=== PATIENT | male | born 1965 | race Caucasian/White ===

== ENCOUNTER 2017-06-16 17:30 | Emergency (ER) | payer OTHER ==
[2017-06-16 17:35] VITALS: BP 106/62; PULSE 50; TEMP 98.2; BMI 27.4
--- NOTE | 2017-06-16 17:44 | PDOC ---
History of Present Illness - General Chief Complaint: Pain Stated Complaint: STOMACH PAIN Time Seen by Provider: 06/16/17 17:42 - History of Present Illness Initial Comments: 06/16/17 17:58 51 yo M with no significant pmh who presents with abdominal pain. Pt. reports stable, unremitting, sharp, epigastirc pain for the past month. Reports returning from [place] 06/11/17 with worsening of symptoms upon return. Also reports having sonogram performed with report of " colon inflammation." Pain worse at night, not aggravated with PO intake or movement. Reports abdominal fullness. Last BM this AM, with no visualized BPR, or dark colored stools. Pain not alleviated with Omperazole 20 mg, Scopalamine 10/250 mg, and Ondansetron 10 mg. States that he drank tap water in [place]. Denies N/V, F/C, diarrhea, constipation, urinary complaints, lightheadedness, weakness. Denies /o endoscopy ,colonoscopy, abdominal surgery, or GI pathology. No GI doctor. Denies alcohol or tobacco use, change in diet, or sick contacts. Past History - Past Medical History Allergies/Adverse Reactions: Allergies Allergy/AdvReac Type Severity Reaction Status Date / Time No Known Allergies Allergy Verified 06/16/17 17:35 Home Medications: Ambulatory Orders Metoclopramide HCl [Reglan] 10 mg PO PRN 06/16/17 Omeprazole 20 mg PO DAILY 06/16/17 Ranitidine [Zantac -] 150 mg PO BID 14 Days #28 tablet MDD 2 Tab 06/16/17 COPD: No - Suicide/Smoking/Psychosocial Hx Smoking History: Never smoked Review of Systems - Review of Systems Comments:: 06/16/17 17:43 GENERAL/CONSTITUTIONAL: No fever or chills. No weakness. HEAD, EYES, EARS, NOSE AND THROAT: No change in vision. No ear pain or discharge. No sore throat.- CARDIOVASCULAR: No chest pain or shortness of breath RESPIRATORY: No cough, wheezing, or hemoptysis. GASTROINTESTINAL: + Abdominal pain. No nausea, vomiting, diarrhea or constipation. GENITOURINARY: No dysuria, frequency, or change in urination. MUSCULOSKELETAL: No joint or muscle swelling or pain. No neck or back pain. SKIN: No rash NEUROLOGIC: No headache, vertigo, loss of consciousness, or change in strength/ sensation. ENDOCRINE: No increased thirst. No abnormal weight change HEMATOLOGIC/LYMPHATIC: No anemia, easy bleeding, or history of blood clots. ALLERGIC/IMMUNOLOGIC: No hives or skin allergy. *Physical Exam - Vital Signs Last Vital Signs Temp Pulse Resp BP Pulse Ox 98.2 F 50 L 18 106/62 99 06/16/17 17:33 06/16/17 17:33 06/16/17 17:33 06/16/17 17:33 06/16/17 17:33 - Physical Exam Comments: 06/16/17 17:43 GENERAL: Awake, alert, and fully oriented, in no acute distress HEAD: No signs of trauma, normocephalic, atraumatic EYES: PERRLA, EOMI, sclera anicteric, conjunctiva clear ENT: Hearing grossly normal, nares patent, oropharynx clear without exudates. Moist mucosa NECK: Normal ROM, supple, no lymphadenopathy, JVD, or masses LUNGS: No distress, speaks full sentences, clear to auscultation bilaterally HEART: Regular rate and rhythm, normal S1 and S2, no murmurs, rubs or gallops, peripheral pulses normal and equal bilaterally. ABDOMEN: Soft, + epigastric ttp, normoactive bowel sounds. No guarding, or rigidity, no rebound. No masses. Neg kelley sign or mcburney point ttp. Neg CVA or suprapubic ttp. EXTREMITIES : Normal inspection, Normal range of motion, no edema. No clubbing or cyanosis. SKIN: Warm, Dry, normal turgor, no rashes or lesions noted ED Treatment Course - LABORATORY CBC & Chemistry Diagram: 06/16/17 18:12 06/16/17 18:12 Medical Decision Making - Medical Decision Making 06/16/17 18:06 51 yo M with no significant pmh who presents with stable, unremitting, sharp, epigastirc pain for the past month. Recent return from [place] 06/11/17 with worsening of symptoms upon return. Reports abdominal fullness. Last BM this AM, with no visualized BPR, or dark colored stools. Pain refractory to Omperazole 20 mg, Scopalamine 10/250 mg, and Ondansetron 10 mg. States that he drank tap water in [place]. Denies N/V, F/C, diarrhea, constipation, urinary complaints, lightheadedness, weakness. Denies h/o endoscopy,. colonoscopy, abdominal surgery , or GI pathology. Physical exam noteable for epigastria ttp. HDS. Abdominal discomfort most likely dyspepsia 2/2 gastritirs vs. esophagitis. Possible travelers diarrhea. Low suspicion of more serious GI pathology . Exam and history do not suggest choleycsytitis, pancreatitis, colitis. ED Course: CBC, CMP, Lipase EKG, RUQ U/S Carafate, Ranitidine, Maloox 06/16/17 18:15 CBC: Unremarkable UA: Neg EKG: Sinus bradycardia with TWI in lead III. Absent TRINA, STD. Normal interval and axis. 06/16/17 19:23 CMP: Unremarkable 06/16/17 22:23 RUQ U/S: No acute pathology Patient stable with improvements in epigastric pain. Pt. stable and ready for d/c with return precautions. Advised to f/u in resident med clinic and with GI outpt. Sent Ranitidine to pharm and advised to cont. PPI use. *DC/Admit/Observation/Transfer Diagnosis at time of Disposition: Dyspepsia - Discharge Dispostion Condition at time of disposition: Stable Admit: No - Prescriptions Prescriptions: Ranitidine [Zantac -] 150 mg PO BID 14 Days #28 tablet MDD 2 Tab - Referrals Referrals: Edi Flores MD [Staff Physician] - Huy Pina DO [Staff Physician] - - Patient Instructions Printed Discharge Instructions: DI for Gastritis Additional Instructions: Please return to the emergency department with any new or worsening symptoms or concerns. Please follow up with your primary care physician within 72 hours. Please take Ranitidine two times per day, and continue Omeprazole use daily. Can also continue to take Scopalamine and Zofran as needed. - Post Discharge Activity - Attestations Physician Attestion: 06/16/17 17:44 I attest to the information provided in this note
[2017-06-16] MEDS ORDERED: RANITIDINE HCL 150 MG TABLET (FP) PO ONE (17:59)
[2017-06-16] MEDS ORDERED: SUCRALFATE 1 GM TABLET (FP) PO ONE (17:59)
[2017-06-16] MEDS ORDERED: MAG HYDROX/AL HYDROX/SIMETH 30 ML UNIT-DOSE CUP PO ONE (17:59)
[2017-06-16] MEDS ORDERED: SUCRALFATE 1 GM TABLET (FP) ONE (18:10)
[2017-06-16] MEDS ORDERED: RANITIDINE HCL 150 MG TABLET (FP) ONE (18:10)
[2017-06-16] MEDS ORDERED: MAG HYDROX/AL HYDROX/SIMETH 30 ML UNIT-DOSE CUP ONE (18:11)
[2017-06-16 18:25] LABS: URINE APPEARANCE CLEAR; URINE BILIRUBIN NEGATIVE (NEGATIVE); URINE BLOOD NEGATIVE (NEGATIVE); URINE COLOR COLORLESS; URINE GLUCOSE (UA) NEGATIVE (NEGATIVE); URINE KETONE NEGATIVE (NEGATIVE); URINE LEUK ESTERASE NEGATIVE (NEGATIVE); URINE NITRITE NEGATIVE (NEGATIVE); URINE PROTEIN NEGATIVE (NEGATIVE); URINE UROBILINOGEN NEGATIVE mg/dL (0.2-1.0)
--- NOTE | 2017-06-16 18:35 | PDOC ---
Attending Attestation - Resident Resident Name: Bennie Day - ED Attending Attestation I have performed the following: I have examined & evaluated the patient, The case was reviewed & discussed with the resident, I agree w/resident's findings & plan, Exceptions are as noted - HPI HPI: 06/16/17 18:32 51 yo male with h/o GERD presents with dyspepsia and epigastric discomfort -no fever,no chills,no vomiting 06/16/17 18:33 -pt saw a physician in [place] and was placed on omeprazole,scopalamine - Physicial Exam PE: 06/16/17 20:01 wnwd 51 yo male in no acute distress head -ncat eyes deniz eomi neck -supple lungs -cta b/l abd- no rebound,no guarding no cva tenderness ext no e/c/c skin warm,dry neuro axox3,no focal neuro deficits psych appropriate - Medical Decision Making 06/16/17 20:03 labs unremarkable pt to follow up with GI
[2017-06-16 18:39] LABS: BASO % 0.7 % (0-2.0); EOS % 0.9 % (0-4.5); HEMATOCRIT 42.2 % (35.4-49); HEMOGLOBIN 14.6 GM/dL (11.7-16.9); LYMPH % 46.6 % (8-40); MCH 31.6 pg (25.7-33.7); MCHC 34.7 g/dl (32.0-35.9); MEAN CELL VOLUME 91.2 fl (80-96); MONO % 7.5 % (3.8-10.2); NEUT % 44.3 % (42.8-82.8); PLATELET COUNT 246 K/MM3 (134-434); RBC 4.63 M/mm3 (4.00-5.60); RDW 12.8 % (11.9-15.9); WHITE BLOOD COUNT 5.6 K/mm3 (4.0-10.0)
[2017-06-16 19:16] LABS: ALBUMIN 4.1 g/dl (3.4-5.0); ALK PHOS 75 U/L (45-117); ANION GAP 6 (8-16); BILIRUBIN,TOTAL 0.4 mg/dL (0.2-1.0); BLOOD UREA NITROGEN 13 mg/dL (7-18); CALCIUM 8.8 mg/dL (8.5-10.1); CHLORIDE 105 mmol/L (98-107); CO2 28 mmol/L (21-32); CREATININE 0.9 mg/dL (0.7-1.3); GLUCOSE,RANDOM 88 mg/dL (74-106); POTASSIUM 3.8 mmol/L (3.5-5.1); SGOT/AST 18 U/L (15-37); SGPT/ALT 20 U/L (12-78); SODIUM 139 mmol/L (136-145); TOT PROT 7.4 g/dl (6.4-8.2)
--- NOTE | 2017-06-17 16:05 | EKG ---
Test Reason : Blood Pressure : / mmHG Vent. Rate : 046 BPM Atrial Rate : 046 BPM P-R Int : 150 ms QRS Dur : 096 ms QT Int : 462 ms P-R-T Axes : 036 015 -21 degrees QTc Int : 404 ms SINUS BRADYCARDIA T WAVE ABNORMALITY, CONSIDER INFERIOR ISCHEMIA ABNORMAL ECG NO PREVIOUS ECGS AVAILABLE Confirmed by KRYSTEN DEAL MD ([id number]) on 06/17/2017 4:05:44 PM Referred By: Confirmed By:KRYSTEN DEAL MD
== END 2017-06-16 22:48 | disposition home or self-care (01) ==
LOC: JER 17:30
DX: K29.60 Other gastritis without bleeding (principal); R10.13 Epigastric pain
CPT/HCPCS: 36415; 76705-TC; 80053; 81003; 83690; 85025; 93005; 93010; 99283-25

== ENCOUNTER 2017-07-12 09:10 | Day surgery (SDC) | payer OTHER ==
[2017-07-11 09:42] VITALS: BMI 26.6
[2017-07-12 10:47] VITALS: TEMP 97.6
[2017-07-12] MEDS ORDERED: PROPOFOL 20 ML ONE ×2 (10:49)
[2017-07-12 12:52] LABS: ALBUMIN 3.8 g/dl (3.4-5.0); ALK PHOS 67 U/L (45-117); ANION GAP 7 (8-16); BILIRUBIN,TOTAL 0.5 mg/dL (0.2-1.0); BLOOD UREA NITROGEN 17 mg/dL (7-18); CHLORIDE 105 mmol/L (98-107); CO2 30 mmol/L (21-32); CREATININE 0.9 mg/dL (0.7-1.3); GLUCOSE,RANDOM 80 mg/dL (74-106); POTASSIUM 4.3 mmol/L (3.5-5.1); SGOT/AST 19 U/L (15-37); SGPT/ALT 18 U/L (12-78); SODIUM 142 mmol/L (136-145); TOT PROT 6.9 g/dl (6.4-8.2)
[2017-07-12 13:07] VITALS: BP 117/65; PULSE 62
--- NOTE | 2017-07-15 16:26 | PATH ---
Surgical Pathology Report Patient Name: SALONI MALONE [facility]. Rec. #: [id number] /Age/Gender: 1965 (Age: 51) / M Account: [id number] Location: U-ENDOSCOPY Taken: 07/12/2017 Received: 07/12/2017 Reported: 07/15/2017 Physicians: Ariel Pina D.O. Specimen(s) Received A: BX DUODENUM PLAQUE B: BX ANGULARIS AND BODY Clinical History Epigastric pain Postoperative diagnosis: Gastritis Final Diagnosis A. DUODENUM, PLAQUE, BIOPSY: INTESTINAL LYMPHANGIECTASIA AND MILD ACUTE AND CHRONIC DUODENITIS. B. STOMACH, ANGULARIS AND BODY, BIOPSY: GASTRIC BODY MUCOSA WITH SEVERE CHRONIC ACTIVE GASTRITIS. IMMUNOHISTOCHEMICAL STAIN FOR H. PYLORI IS POSITIVE ([place]). Electronically Signed Blanka Iglesias M.D. Gross Description A. Received in formalin, labeled "biopsy duodenal plaque" are 2 ingram, irregular portions of soft tissue averaging 0.2 cm. in greatest dimension. The specimens are submitted in toto in one cassette. B. Received in formalin, labeled "biopsy angularis and body" are 3 ingram, irregular portions of soft tissue ranging from 0.1-0.3 cm. in greatest dimension. The specimens are submitted in toto in one cassette. 07/12/201707/12/2017
== END 2017-07-12 11:40 | disposition home or self-care (01) ==
LOC: JASU-ENDO 09:10
PROVIDERS: ATTEND Internal Medicine Gastroenterology
PROC: 0DB68ZX Excision of Stomach, Via Natural or Artificial Opening Endoscopic, Diagnostic (ICD-10-PCS; principal; 2017-07-12 10:30)
DX: B96.81 Helicobacter pylori [H. pylori] as the cause of diseases classified elsewhere (principal); K29.80 Duodenitis without bleeding; K29.50 Unspecified chronic gastritis without bleeding; I89.0 Lymphedema, not elsewhere classified
CPT/HCPCS: 36415; 80053; 88305-TC; 88342-TC

== ENCOUNTER 2018-12-30 15:30 | Emergency (ER) | payer OTHER ==
--- NOTE | 2018-12-30 15:35 | PDOC ---
Rapid Medical Evaluation Time Seen by Provider: 12/30/18 15:32 Medical Evaluation: Allergies Allergy/AdvReac Type Severity Reaction Status Date / Time No Known Allergies Allergy Verified 06/16/17 17:35 12/30/18 15:32 HPI:Right sided lower abdominal pain x 2 days PE: No gross deficits RLQ tenderness ORDERS: labs US Discharge Disposition - Diagnosis Abdominal pain - Referrals - Patient Instructions - Post Discharge Activity
[2018-12-30 15:36] VITALS: TEMP 97.8; BMI 24.1
[2018-12-30 16:21] LABS: BASO % 0.8 % (0-2.0); EOS % 0.9 % (0-4.5); HEMATOCRIT 42.1 % (35.4-49); HEMOGLOBIN 14.3 GM/dL (11.7-16.9); LYMPH % 40.9 % (8-40); MCH 31.5 pg (25.7-33.7); MEAN CELL VOLUME 92.7 fl (80-96); MONO % 7.5 % (3.8-10.2); NEUT % 49.9 % (42.8-82.8); PLATELET COUNT 258 K/MM3 (134-434); RBC 4.54 M/mm3 (4.00-5.60); WHITE BLOOD COUNT 5.5 K/mm3 (4.0-10.0)
[2018-12-30 16:51] LABS: ALBUMIN 3.8 g/dl (3.4-5.0); BILIRUBIN,TOTAL 0.2 mg/dL (0.2-1); BLOOD UREA NITROGEN 19.3 mg/dL (7-18); CALCIUM 8.9 mg/dL (8.5-10.1); CREATININE 0.9 mg/dL (0.55-1.3); POTASSIUM 3.5 mmol/L (3.5-5.1); TOT PROT 6.9 g/dl (6.4-8.2)
--- NOTE | 2018-12-30 16:58 | PDOC ---
History of Present Illness - General Chief Complaint: Pain, Acute Stated Complaint: ABD. PAIN Time Seen by Provider: 12/30/18 15:32 - History of Present Illness Initial Comments: 12/30/18 16:21 53yo M hx GERD presents from home with 2 days R groin pain. Pain is located in R inguinal region, gradual onset, constant, not worsening/improving, "holding" type, worse with abdominal contraction or movement, tried tylenol yesterday without improvement, initially nonradiating then radiating to R flank x1 day. Denies trauma, heavy lifting or inciting event, hx of similar sx, hx kidney stones, hx UTI, abdominal surgeries, testicular pain, testicular swelling, penile pain, penile discharge, genital rashes, dysuria, hematuria, erectile dysfunction, diarrhea, constipation, nausea, vomiting, blood in stool, abdominal pain, fever, chills, fatigue, headache, dizziness, numbness/tingling, weakness, vision changes, shortness of breath, cough, chest pain, palpitations, leg swelling, confusion. Past History - Past Medical History Allergies/Adverse Reactions: Allergies Allergy/AdvReac Type Severity Reaction Status Date / Time No Known Allergies Allergy Verified 12/30/18 15:33 Home Medications: Ambulatory Orders NK [No Known Home Medication] 12/30/18 Anemia: No Asthma: No Cancer: No Cardiac Disorders: No CVA: No COPD: No CHF: No Dementia: No Diabetes: No GI Disorders: No Disorders: No HTN: No Hypercholesterolemia: No Liver Disease: No Seizures: No Thyroid Disease: No - Psycho Social/Smoking Cessation Hx Smoking History: Never smoked Hx Alcohol Use: Yes (SOCIALLY) Drug/Substance Use Hx: No Hx Substance Use Treatment: No Review of Systems - Review of Systems Comments:: 12/30/18 16:21 Constitutional: Negative for chills, fever, fatigue. HENT: Negative for sore throat, rhinorrhea, congestion. Eyes: Negative for visual disturbance. Respiratory: Negative for shortness of breath, cough, and wheezing. Cardiovascular: Negative for chest pain, palpitations, and leg swelling. Gastrointestinal: Negative for abdominal pain, blood in stool, constipation, diarrhea, nausea, and vomiting. Genitourinary: Negative for dysuria, flank pain, erectile dysfunction, testicular pain or swelling, and hematuria. Musculoskeletal: Positive for R groin/inguinal pain. Negative for myalgias, back pain, and neck pain. Skin: Negative for rash. Neurological: Negative for light-headedness, dizziness, syncope, weakness, numbness and headaches. Psychiatric/Behavioral: Negative for behavioral problems and confusion. *Physical Exam - Vital Signs Last Vital Signs Temp Pulse Resp BP Pulse Ox 97.8 F 60 16 100/62 99 12/30/18 15:35 12/30/18 15:35 12/30/18 15:35 12/30/18 15:35 12/30/18 15:35 - Physical Exam Comments: 12/30/18 16:21 Gen: Alert, NAD, comfortable-appearing. HEENT: PERRL, EOMI, MMM, NCAT. No conjunctival pallor. Sclera are non-icteric. CV: Regular rate and rhythm. No murmurs, rubs, or gallops. PULM: No resp distress. CTAB, no wheezes, rales, or rhonchi. ABD: soft, NT/ND, no rebound tenderness or guarding, no CVA tenderness. : +TTP R inguinal region. Normal penis and testes, no scrotal mass, no scrotal edema, no tenderness of scrotum or penis, no urethral discharge, no penile lesions, no rashes on genitalia or perineum, no varicocele, no tenderness of epididymis, no swelling of epididymis, no femoral or inguinal hernia b/l. Intact cremasteric reflex b/l. No transverse lie of testicle or abnormal scrotal elevation. BACK: No TTP of c/t/l-spine. No step-offs or deformities. MSK: No bony deformities. 2+ pulses in all extremities. NEURO: AAOx3. PERRL. No gross CN deficits. Strength and sensation grossly intact throughout. EXTREMITIES: No cyanosis. No clubbing. No edema. No calf tenderness. PSYCH: Normal mood and thought pattern. SKIN: Warm and dry. Normal capillary refill. No rashes. No jaundice. ED Treatment Course - LABORATORY CBC & Chemistry Diagram: 12/30/18 15:52 12/30/18 15:52 - ADDITIONAL ORDERS Additional order review: Laboratory Results 12/30/18 15:52 Sodium 138 Potassium 3.5 Chloride 105 Carbon Dioxide 27 Anion Gap 6 L BUN 19.3 H Creatinine 0.9 Est GFR (CKD-EPI)AfAm 114.21 Est GFR (CKD-EPI)NonAf 98.54 Random Glucose 90 Calcium 8.9 Total Bilirubin 0.2 AST 18 ALT 27 Alkaline Phosphatase 67 Total Protein 6.9 Albumin 3.8 Lipase 151 12/30/18 15:52 RBC 4.54 MCV 92.7 MCHC 34.0 RDW 13.0 MPV 9.0 Neutrophils % 49.9 Lymphocytes % 40.9 H Monocytes % 7.5 Eosinophils % 0.9 Basophils % 0.8 Medical Decision Making - Medical Decision Making 12/30/18 16:21 53yo M hx GERD presents from home with 2 days R groin pain and TTP, gradual onset, constant, not worsening/improving, "holding" type, worse with abdominal contraction or movement, tried tylenol yesterday without improvement, radiating to R flank x1 day, atraumatic, no heavy lifting or inciting event, no hx of similar sx, no associated sx, no testicular or or GI sx. Hemodynamically stable, afebrile, mild TTP of R inguinal region but otherwise benign testicular and abdomen exam. Most likely musculoskeletal/groin strain vs inguinal hernia due to R inguinal TTP and worsening with movement - evaluate with US R groin. Low concern for testicular etiologies such as testicular torsion or epididymitis due to intact cremasteric reflex, normal testicular exam, and lack of testicular pain/TTP, but due to proximity of pain to testicles, r/o with scrotal US. Consider renal or urinary etiology such as kidney stone or UTI due to radiation of pain to R flank, though very low concern due to lack of urinary sx, N/V, or CVA tenderness. If unable to determine etiology with US and labs, consider further evaluation for kidney stone with CTAP. Benign abdominal exam and no diarrhea, constipation, N/V, or abdominal pain concerning for GI etiology such as appendicitis or colitis. No signs of Raquel's gangrene. -CBC, CMP, Lipase, UA/UC -IV Tylenol -US Scrotum and R groin -Consider CTAP -Dispo: likely d/c home pending w/u 12/30/18 18:21 Labs reviewed. No concerning findings. 12/30/18 19:07 Ultrasound reviewed. No concerning findings or indications of hernia or testicular torsion. Pt says pain is still mild but present. Will obtain CTAP to r/o appendicitis and kidney stone. Signed out to Dr Zuñiga. *DC/Admit/Observation/Transfer Diagnosis at time of Disposition: Abdominal pain - Discharge Dispostion Disposition: HOME Condition at time of disposition: Improved Decision to Admit order: No - Referrals Referrals: Massimo Dent MD [Primary Care Provider] - - Patient Instructions Printed Discharge Instructions: DI for Groin Strain Additional Instructions: You have been seen in the Emergency Department for right-sided groin, abdomen, and back pain. Your EKG, ultrasound, CT scan and labs show no signs concerning for an emergent condition in your abdomen, groin, or testicles such as appendicitis or kidney stone. There are many possible causes of your pain, but it is most likely a strain of your groin muscle. At this time, it's most important to stay hydrated and rest. If you experience pain, you can take Tylenol or Ibuprofen as directed on the medication bottle, but do not exceed 3g of Ibuprofen or 4g of Tylenol a day. Follow-up with your primary care doctor within 1 week. Return to the ED immediately if you experience worsening pain, pain not controlled by over the counter medications, blood in your urine, fever, nausea, vomiting, dizziness, blood in stool, severe vomiting, or any other new or worsening symptom. - Post Discharge Activity Discharge - Discharge Information Clinical Impression/Diagnosis: Abdominal pain Condition: Improved Disposition: HOME - Follow up/Referral Referrals: Massimo Dent MD [Primary Care Provider] - - Patient Discharge Instructions Patient Printed Discharge Instructions: DI for Groin Strain Additional Instructions: You have been seen in the Emergency Department for right-sided groin, abdomen, and back pain. Your EKG, ultrasound, CT scan and labs show no signs concerning for an emergent condition in your abdomen, groin, or testicles such as appendicitis or kidney stone. There are many possible causes of your pain, but it is most likely a strain of your groin muscle. At this time, it's most important to stay hydrated and rest. If you experience pain, you can take Tylenol or Ibuprofen as directed on the medication bottle, but do not exceed 3g of Ibuprofen or 4g of Tylenol a day. Follow-up with your primary care doctor within 1 week. Return to the ED immediately if you experience worsening pain, pain not controlled by over the counter medications, blood in your urine, fever, nausea, vomiting, dizziness, blood in stool, severe vomiting, or any other new or worsening symptom. - Post Discharge Activity
[2018-12-30 17:18] LABS: PH,URINE 5.5 (5.0-8.0); URINE APPEARANCE CLEAR; URINE BILIRUBIN NEGATIVE (NEGATIVE); URINE COLOR YELLOW; URINE GLUCOSE (UA) NEGATIVE (NEGATIVE); URINE KETONE NEGATIVE (NEGATIVE); URINE LEUK ESTERASE NEGATIVE (NEGATIVE); URINE NITRITE NEGATIVE (NEGATIVE); URINE PROTEIN NEGATIVE (NEGATIVE); URINE UROBILINOGEN 0.2 mg/dL (0.2-1.0)
[2018-12-30] MEDS ORDERED: ACETAMINOPHEN 1000 MG/100 ML VIAL (NON FORMULARY) IVPB ONE (17:28)
--- NOTE | 2018-12-30 17:28 | PDOC ---
Attending Attestation - Resident Resident Name: Lanette Andersen - ED Attending Attestation I have performed the following: I have examined & evaluated the patient, The case was reviewed & discussed with the resident, I agree w/resident's findings & plan, Exceptions are as noted - HPI HPI: 12/30/18 17:27 thsi 53 yo male has had 2 days of rt sided groin pain, no nausea or vomiting,no fevers,no dysuria HPI: he had some rt flank pain initially but it resolved 12/30/18 18:52 - Physicial Exam PE: 12/30/18 17:45 wnwd 53 y male p/w 2 days of rt groin/abdominal pain head ncat neck supple,no jvd lungs cta b/l cvs [id number] abd rlq pain no flank pain skin warm and dry neuro axox3,ambulatory - Medical Decision Making 12/30/18 17:28 labs are unremarkable normal cremasteric reflex 12/30/18 18:53 scrotal US no testicular torsion, no inguinal hernia evident 12/30/18 18:57 pt still has RLQ pain adn joshua pursue Ct scan abd/pel to r/o appendicitis 12/30/18 21:29 CT SCAN ABD/PEL NEGATIVE FOR APPENDICITIS OR ANY ACUTE SURGICAL PROCESS pt dischaefed home
[2018-12-30] MEDS ORDERED: ACETAMINOPHEN INJECTION 100 ML IVPB ONE (17:40)
--- NOTE | 2018-12-30 19:08 | PDOC ---
*Physical Exam - Vital Signs Last Vital Signs Temp Pulse Resp BP Pulse Ox 97.8 F 60 16 100/62 99 12/30/18 15:35 12/30/18 15:35 12/30/18 15:35 12/30/18 15:35 12/30/18 15:35 ED Treatment Course - LABORATORY CBC & Chemistry Diagram: 12/30/18 15:52 12/30/18 15:52 - ADDITIONAL ORDERS Additional order review: Laboratory Results 12/30/18 12/30/18 15:52 15:52 Sodium 138 Potassium 3.5 Chloride 105 Carbon Dioxide 27 Anion Gap 6 L BUN 19.3 H Creatinine 0.9 Est GFR (CKD-EPI)AfAm 114.21 Est GFR (CKD-EPI)NonAf 98.54 Random Glucose 90 Calcium 8.9 Total Bilirubin 0.2 AST 18 ALT 27 Alkaline Phosphatase 67 Total Protein 6.9 Albumin 3.8 Lipase 151 Urine Color Yellow Urine Appearance Clear Urine pH 5.5 D Ur Specific [place] 1.007 L Urine Protein Negative Urine Glucose (UA) Negative Urine Ketones Negative Urine Blood Negative Urine Nitrite Negative Urine Bilirubin Negative Urine Urobilinogen 0.2 Ur Leukocyte Esterase Negative 12/30/18 15:52 RBC 4.54 MCV 92.7 MCHC 34.0 RDW 13.0 MPV 9.0 Neutrophils % 49.9 Lymphocytes % 40.9 H Monocytes % 7.5 Eosinophils % 0.9 Basophils % 0.8 - Medications Given in the ED: ED Medications Discontinued Medications Generic Name Dose Route Start Last Admin Trade Name Chintanq PRN Reason Stop Dose Admin Acetaminophen 1,000 mg 12/30/18 17:28 12/30/18 17:44 Ofirmev Injection - IVPB 12/30/18 17:29 1,000 mg ONCE ONE Administration Medical Decision Making - Medical Decision Making 12/30/18 19:[address] Hsu. Will f/u CT abdomen/pelvis results, dispo per imaging. 12/30/18 21:18 CT abd/pelvis negative for acute pathology, will dc home. *DC/Admit/Observation/Transfer Diagnosis at time of Disposition: Abdominal pain - Discharge Dispostion Disposition: HOME Condition at time of disposition: Improved - Referrals Referrals: Massimo Dent MD [Primary Care Provider] - - Patient Instructions Printed Discharge Instructions: DI for Groin Strain Additional Instructions: You have been seen in the Emergency Department for right-sided groin, abdomen, and back pain. Your EKG, ultrasound, CT scan and labs show no signs concerning for an emergent condition in your abdomen, groin, or testicles such as appendicitis or kidney stone. There are many possible causes of your pain, but it is most likely a strain of your groin muscle. At this time, it's most important to stay hydrated and rest. If you experience pain, you can take Tylenol or Ibuprofen as directed on the medication bottle, but do not exceed 3g of Ibuprofen or 4g of Tylenol a day. Follow-up with your primary care doctor within 1 week. Return to the ED immediately if you experience worsening pain, pain not controlled by over the counter medications, blood in your urine, fever, nausea, vomiting, dizziness, blood in stool, severe vomiting, or any other new or worsening symptom. - Post Discharge Activity
[2018-12-30 20:15] VITALS: BP 98/57; PULSE 61
--- NOTE | 2018-12-31 11:04 | EKG ---
Test Reason : Blood Pressure : / mmHG Vent. Rate : 053 BPM Atrial Rate : 053 BPM P-R Int : 148 ms QRS Dur : 096 ms QT Int : 432 ms P-R-T Axes : 045 022 -16 degrees QTc Int : 405 ms SINUS BRADYCARDIA INCOMPLETE RIGHT BUNDLE BRANCH BLOCK NONSPECIFIC T WAVE ABNORMALITY ABNORMAL ECG WHEN COMPARED WITH ECG OF 16-JUN-2017 17:10, NO SIGNIFICANT CHANGE WAS FOUND Confirmed by KENAN HUNT, GIOVANA ([id number]) on 12/31/2018 11:04:14 AM Referred By: Confirmed By:GIOVANA GRAYSON MD
== END 2018-12-30 21:31 | disposition home or self-care (01) ==
LOC: JER 15:30
PROC: 3E033NZ Introduction of Analgesics, Hypnotics, Sedatives into Peripheral Vein, Percutaneous Approach (ICD-10-PCS; principal; 2018-12-30)
DX: R10.30 Lower abdominal pain, unspecified (principal)
CPT/HCPCS: 36415; 74177-TC; 76870-TC; 76882-TC-RT-FY; 80053; 81003; 83690; 85025; 87086; 93005; 93010; 99284-25; J0131